=== PATIENT | male | born 1980 | race Caucasian/White ===

== ENCOUNTER → 2018-07-29 | Emergency (ER) | payer MEDICAID, OTHER ==
[~2018-07-29] VITALS: Ht 162.6 cm; Wt 64.9 kg
[~2018-07-29] MED LIST: CLIN300C85 PO; ORPH100T2 PO
[2018-07-29 14:24] VITALS: BP 114/77
--- NOTE | 2018-07-29 14:49 | NUR ---
PATIENT APPEARS TO HAVE TWO ABCESSES ON HIS LEFT BUTTOCK: SEEN [facility] IN 2018 FOR 3RD ABCESS THAT IS NOW GONE
--- NOTE | 2018-07-29 14:52 | NUR ---
PATIENT HAS A DENTAL APPOINTMENT WITH [facility] IN [place] ON 08/14/18
== END | disposition home or self-care (01) ==
LOC: ER 14:08
DX: K04.7 Periapical abscess without sinus (principal); L03.317 Cellulitis of buttock; F12.90 Cannabis use, unspecified, uncomplicated; F15.90 Other stimulant use, unspecified, uncomplicated; Z98.890 Other specified postprocedural states; Z79.2 Long term (current) use of antibiotics; Z79.899 Other long term (current) drug therapy
CPT/HCPCS: 99283

== ENCOUNTER 2019-03-01 02:11 | Emergency (ER) | payer MEDICAID ==
[~2019-03-01] VITALS: Ht 162.6 cm; Wt 68.0 kg
[~2019-03-01 02:11] MED LIST changes: +CLIN-96 PO; -CLIN300C85 PO
--- NOTE | 2019-03-01 02:36 | NUR ---
pt. states he had a compression fx of his spine. pt. had surgury to corect 9mm of his disk of of l-5 and s-1. pt. had an mri 1 year ago and was told that his siatic nerve is catching on those vertabra. pt. took morphine 15mg at home before calling [facility].
[2019-03-01] MEDS ORDERED: ondansetron 4mg rapidly disintigrating tab PO ONE (03:50)
[2019-03-01] MEDS ORDERED: triamcinolone acetonide 40mg/ml inj IM ONE (03:50)
[2019-03-01] MEDS ORDERED: orphenadrine citrate 60mg/2ml inj. IM ONE (03:50)
[2019-03-01] MEDS ORDERED: acetaminophen 325mg tablet PO ONE (03:50)
[2019-03-01] MEDS ORDERED: morphine 4 MG/ML inj SYRINge IM ONE (03:50)
[2019-03-01] MEDS ORDERED: LIDOcaine 5% patch TP ONE (03:50)
[2019-03-01] MEDS ORDERED: ketorolac trometh inj. 60 MG/2 ML VIAL IM ONE (03:50)
[2019-03-01] MEDS ORDERED: LIDO700A32 TOP (03:52)
[2019-03-01] MEDS ORDERED: ACET-2615 PO (03:52)
[2019-03-01] MEDS ORDERED: CYCL-1 PO (03:52)
[2019-03-01 04:55] VITALS: BP 103/26
== END 2019-03-01 05:58 | disposition home or self-care (01) ==
LOC: ER 02:11
DX: S33.5XXA Sprain of ligaments of lumbar spine, initial encounter (principal); M54.41 Lumbago with sciatica, right side; G89.29 Other chronic pain; F12.90 Cannabis use, unspecified, uncomplicated; F15.90 Other stimulant use, unspecified, uncomplicated; F10.99 Alcohol use, unspecified with unspecified alcohol-induced disorder; Z98.890 Other specified postprocedural states; Z79.899 Other long term (current) drug therapy; X58.XXXA Exposure to other specified factors, initial encounter; Y93.89 Activity, other specified; Y92.89 Other specified places as the place of occurrence of the external cause; Y99.8 Other external cause status; Y90.9 Presence of alcohol in blood, level not specified
CPT/HCPCS: 96372; 99284; J1885; J2270; J2360; J3301